=== PATIENT | female | born 1990 | race Caucasian/White ===

== ENCOUNTER 2019-08-15 19:38 | Emergency (ER) | payer OTHER, SELFPAY ==
[2019-08-15 19:44] VITALS: BP 116/60; PULSE 116; RESP 16; TEMP 37.2; O2SAT 99
--- NOTE | 2019-08-15 19:52 | ED.GENADULT ---
HPI - General Adult General Chief complaint: [employer] Stated complaint: Tampon Stuck Time Seen by Provider: 08/15/19 19:52 Source: patient and RN notes reviewed Mode of arrival: ambulatory Limitations: no limitations History of Present Illness HPI narrative: 29-year-old female presents with complaints of foreign body in vaginal cavity for the past 3 days. No dysuria, burning, frequency, and urgency. No treatment. Debora says she has one male sexual partner whom she uses condoms with on her sexual encounters. Denies fever or chills. Denies nausea, vomiting, and abdominal pain. No significant pelvic pain. No vaginal discharge. No concerns for STDs. Denies being , last menstrual started 2 days prior to having sexual intercourse (08/10/19). No flank pain. Exacerbating factors having sexual intercourse while tampon in place. Denies hematuria or vaginal bleeding. Tolerating liquids well. Remains active. The patient reports she have not been diagnosed with COVID-19. The patient reports she is not waiting for the results of a COVID-19 lab test. The patient reports she do not have fever, chills, weakness, fatigue, myalgia, or facial swelling. The patient reports she do not have a new or worsening cough or shortness of breath. Denies chest pain. The patient reports she do not have any rhinorrhea, congestion, sore throat, vomiting, abdominal pain, and diarrhea. Tolerating po intake well. Denies recent traveling. Denies concerns for COVID-19 or exposures been home since [id number] order except for essential household needs and return home. At this time, patient is not suspected of having COVID-19. Complaints of rash to right side of mouth and below right nostril for 2 weeks. No treatment. Denies new changes in personal hygiene products or laundry detergent. No new foods or medications. No swelling, burning, bleeding, or drainage. Denies fever, chills, headaches, weakness, fatigue, myalgia, facial swelling, or tongue swelling. Denies chest pain or dyspnea. Tolerating po intake well. Remains active. Complains of being anxious for the past 30 days. No recent treatment. History of PTSD, Depression, Dipolar Type 2, and Substance abuse. Denies sleep disturbance, suicidal ideation, homicidal ideation, auditory and visual hallucinations. Denies having chest pain or shortness of breath. Denies dizziness, syncopal, head or chest trauma, altered mental status change or vision, altered speech, confusion, or seizure activity. Debora says she uses marijuana and methamphetamine, denies other recreational drug usage. Some parts of this dictation were generated by voice recognition software and may contain typographical and/or grammatical inaccuracies. Related Data Allergies Allergy/AdvReac Type Severity Reaction Status Date / Time oxycodone [From Percocet] Allergy Unknown Verified 08/15/19 19:54 Review of Systems Review of Systems: Narrative: CONSTITUTIONAL: Denies fever, chills, sweats. EYES: Denies visual changes, redness, discharge. ENT: Denies rhinorrhea, congestion, sore throat, otalgia. CARDIOVASCULAR: Denies chest pain, palpitations, edema. RESPIRATORY: Denies dyspnea, wheezing, cough GASTROINTESTINAL: Denies abdominal pain, nausea, vomiting, diarrhea. GENITOURINARY: Complains of tuck tampon. Denies dysuria, hematuria, abnormal discharge. SKIN: Complains of rash and itching to face. MUSCULOSKELETAL: Denies acute back pain, joint pain, or myalgia. NEUROLOGIC: Denies numbness, or focal weakness. PSYCHIATRIC: Complains of being anxious. Denies suicidal ideation, homicidal ideation, or depression. All systems reviewed & are unremarkable except as noted in HPI and below. [facility] Past Medical History Medical History (Updated 08/16/19 @ 00:00 by Background Daemon) Anxiety Bipolar 2 disorder Depression Post traumatic stress disorder (PTSD) Surgical History Surgical History (Updated 08/15/19 @ 20:08 by TONE Wolfe) No
== END 2019-08-15 20:20 | disposition home or self-care (01) ==
PROVIDERS: Emergency Provider Nurse Practitioner Family
DX: T19.2XXA Foreign body in vulva and vagina, initial encounter (principal); L01.00 Impetigo, unspecified; F41.9 Anxiety disorder, unspecified
CPT/HCPCS: 99203; G0463